=== PATIENT | male | born 1990 | race Two or more races ===

== ENCOUNTER 2019-07-02 13:30 | Emergency (ER) | payer MEDICAID, OTHER ==
[~2019-07-02] VITALS: Ht 177.8 cm; Wt 227.3 kg
[~2019-07-02 13:30] MED LIST: NOCURR
[2019-07-02] MEDS ORDERED: ACETAMINOPHEN 500 MG TABLET PO ONE (14:15)
[2019-07-02 15:17] VITALS: BP 142/74
== END 2019-07-02 15:59 | disposition home or self-care (01) ==
LOC: EMS 13:31
DX: U07.1 COVID-19 (principal); R07.89 Other chest pain; Z88.6 Allergy status to analgesic agent
CPT/HCPCS: 87635; 93005

== ENCOUNTER 2019-07-07 02:33 | Inpatient (IN) | payer MEDICAID ==
[~2019-07-07] VITALS: Ht 182.9 cm; Wt 204.0 kg
[2019-07-07] MEDS ORDERED: ACETAMINOPHEN 500 MG TABLET PO ONE (03:45)
[2019-07-07] MEDS ORDERED: LORazepam 1 MG TABLET PO ONE (03:45)
[2019-07-07 04:49] LABS: BASOPHILS % (AUTO) 0.3 % (0.0-2.0); EOSINOPHILS % (AUTO) 0.1 % (1.0-6.0); HEMATOCRIT 43.9 % (41-53); HEMOGLOBIN 14.7 g/dL (13.5-17.5); LYMPHOCYTES # (AUTO) 1.2 K/uL (1.0-4.8); LYMPHOCYTES % (AUTO) 13.8 % (22.0-44.0); MEAN CORPUSCULAR HEMOGLOBIN 29.9 pg (26.0-34.0); MEAN CORPUSCULAR HGB CONC 33.5 G/dL (31.0-37.0); MEAN CORPUSCULAR VOLUME 89 fL (80-100); MONOCYTES # (AUTO) 0.3 K/uL (0.1-1.0); MONOCYTES % (AUTO) 3.7 % (2.0-9.0); NEUTROPHILS # (AUTO) 7.5 K/uL (1.8-7.7); NEUTROPHILS % (AUTO) 82.1 % (40.0-70.0); PLATELET COUNT (AUTO) 158 K/uL (150-450); RED BLOOD CELL COUNT(AUTO) 4.92 MIL/uL (4.50-5.90); RED CELL DISTRIBUTION WIDTH 13.9 % (11.5-14.5)
[2019-07-07 05:23] LABS: ALANINE AMINOTRANSFERASE 69 U/L (12-78); ALKALINE PHOSPHATASE 106 U/L (46-116); ANION GAP 8 mmol/L (8-16); ASPARTATE AMINOTRANSFERASE 55 U/L (15-37); BILIRUBIN,TOTAL 0.6 mg/dL (0.1-1.0); CALCIUM, TOTAL 7.9 mg/dL (8.8-10.5); CARBON DIOXIDE 30 mmol/L (22-29); CHLORIDE 98 mmol/L (98-107); CREATININE 0.93 mg/dL (0.60-1.30); GLOMERULAR FILTR. RATE CALC > 60 mL/min (>60); GLUCOSE,RANDOM 111 mg/dL (70-110); POTASSIUM 3.1 mmol/L (3.5-5.1); SODIUM SERUM 136 mmol/L (136-145); TOTAL PROTEIN, SERUM 8.4 g/dL (6.4-8.2)
[2019-07-07 05:36] LABS: ALBUMIN 3.5 g/dL (3.4-5.0); UREA NITROGEN, BLOOD 4 mg/dL (7-18)
[2019-07-07] MEDS ORDERED: ONDANSETRON HCL 4 MG/2 ML VIAL IVP PRN ×2 (06:00→10:00)
[2019-07-07] MEDS ORDERED: 0.9% SODIUM CHLORIDE 10 ML SYRINGE IVP PRN (06:00)
[2019-07-07] MEDS ORDERED: POTASSIUM CHLORIDE 10% 40 MEQ/30 ML LIQUID UDCUP PO ONE (06:00)
[2019-07-07] MEDS ORDERED: AZITHROMYCIN 500 MG/NS 250 ML IV ONE (06:00)
[2019-07-07] MEDS ORDERED: HYDROXYCHLOROQUINE SULFATE 200 MG TABLET PO ONE ×3 (06:00→21:00)
[2019-07-07] MEDS ORDERED: ACETAMINOPHEN 325 MG TABLET PO PRN (06:00)
[2019-07-07] MEDS ORDERED: POTASSIUM CHL 20 MEQ/D5-0.45NS 1,000 ML IV ONE (06:00)
[2019-07-07] MEDS ORDERED: SODIUM CHLORIDE 0.9% 250 ML IV ONE (07:42)
[2019-07-07 08:15] VITALS: BP 153/88
[2019-07-07] MEDS ORDERED: ZOLPIDEM TARTRATE 5 MG TABLET PO PRN (10:00)
[2019-07-07] MEDS ORDERED: HYDROCODONE/ACETAMINOPHEN 5-325 MG TABLET PO PRN (10:00)
[2019-07-07] MEDS ORDERED: BISACODYL 10 MG RECTAL RECTAL SUPPOSITORY PR PRN (10:00)
[2019-07-07] MEDS ORDERED: MAGNESIUM HYDROXIDE SUSPENSION 30 ML UDCUP PO PRN (10:00)
[2019-07-07] MEDS ORDERED: MORPHINE SULFATE 2 MG/ML SYRINGE IVP PRN (10:00)
[2019-07-07 11:04] LABS: D-DIMER 0.36 mg/L FEU (0.00-0.50)
[2019-07-07 11:10] LABS: C-REACTIVE PROTEIN QUANT 8.42 mg/dL (0.00-0.30)
[2019-07-07 12:01] VITALS: BP 149/84
[2019-07-07] MEDS: ACETAMINOPHEN 325 MG TABLET PO PRN ×2 (12:19→20:14)
[2019-07-07] MEDS: ASCORBIC ACID 500 MG TABLET PO SCH ×2 (15:18→20:13)
[2019-07-07] MEDS: HEPARIN SODIUM,PORCINE 5,000 UNITS/ML VIAL SQ SCH (15:18)
[2019-07-07 15:19] VITALS: BP 155/96
[2019-07-07] MEDS: LORazepam 2 MG/ML VIAL IVP PRN (19:53)
[2019-07-07 20:00] VITALS: BP 140/75
[2019-07-07 20:03] LABS: ABG A-A DIFF O2 35.6 mmHg (10-20.0); ABG BASE EXCESS 2.7 mmol/L (-2.0-3.0); ABG CARBOXYHEMOGLOBIN 0.9 % (0.0-3.0); ABG HCO3 26.9 mmol/L (22.0-26.0); ABG METHEMOGLOBIN 0.1 % (0.0-1.5); ABG OXYGEN CONTENT 18.6 mL/dL (15.0-23.0); ABG OXYHEMOGLOBIN 92.1 % (94.0-100.0); ABG PCO2 40 mmHg (35-45); ABG PH 7.448 (7.350-7.450); ABG TOTAL HEMOGLOBIN 14.4 G/dL (12.0-18.0); PO2, ARTERIAL BG 66.1 mmHg (80.0-100.0); SITE, BLOOD GAS RT RADIAL; SOURCE, BLOOD GAS ARTERIAL
[2019-07-07] MEDS: ZINC GLUCONATE 50 MG TABLET PO SCH (20:11)
[2019-07-07] MEDS: DOCUSATE SODIUM 100 MG CAPSULE PO SCH (20:12)
[2019-07-07] MEDS: THIAMINE HCL 100 MG/ML 2ML VIAL IVP SCH (20:13)
[2019-07-08] VITALS: BP 148/77
[2019-07-08] MEDS: ACETAMINOPHEN 325 MG TABLET PO PRN (01:01)
[2019-07-08] MEDS: LORazepam 2 MG/ML VIAL IVP PRN ×2 (03:58→23:07)
[2019-07-08 04:00] VITALS: BP 143/67
[2019-07-08 07:10] LABS: BASOPHILS % (AUTO) 0.1 % (0.0-2.0); EOSINOPHILS % (AUTO) 0 % (1.0-6.0); HEMATOCRIT 39.2 % (41-53); HEMOGLOBIN 13.4 g/dL (13.5-17.5); LYMPHOCYTES # (AUTO) 1.5 K/uL (1.0-4.8); LYMPHOCYTES % (AUTO) 20.5 % (22.0-44.0); MEAN CORPUSCULAR HEMOGLOBIN 30.2 pg (26.0-34.0); MEAN CORPUSCULAR HGB CONC 34.1 G/dL (31.0-37.0); MEAN CORPUSCULAR VOLUME 88 fL (80-100); MONOCYTES # (AUTO) 0.4 K/uL (0.1-1.0); MONOCYTES % (AUTO) 5.4 % (2.0-9.0); NEUTROPHILS # (AUTO) 5.5 K/uL (1.8-7.7); PLATELET COUNT (AUTO) 168 K/uL (150-450); RED BLOOD CELL COUNT(AUTO) 4.43 MIL/uL (4.50-5.90); RED CELL DISTRIBUTION WIDTH 14.1 % (11.5-14.5)
[2019-07-08 07:57] LABS: INR 1.2 (0.9-1.1); PROTHROMBIN TIME 12.5 SEC (9.4-11.6)
[2019-07-08 08:30] VITALS: BP 147/84
[2019-07-08] MEDS: THIAMINE HCL 100 MG/ML 2ML VIAL IVP SCH ×2 (08:34→20:38)
[2019-07-08] MEDS: HEPARIN SODIUM,PORCINE 5,000 UNITS/ML VIAL SQ SCH ×4 (08:34→23:08)
[2019-07-08] MEDS: ZINC GLUCONATE 50 MG TABLET PO SCH ×2 (08:34→20:38)
[2019-07-08] MEDS: HYDROXYCHLOROQUINE SULFATE 200 MG TABLET PO SCH ×2 (08:34→20:38)
[2019-07-08] MEDS: AZITHROMYCIN 500 MG TABLET PO SCH (08:35)
[2019-07-08] MEDS: ASCORBIC ACID 500 MG TABLET PO SCH ×3 (08:35→20:38)
[2019-07-08] MEDS: PANTOPRAZOLE SODIUM 40 MG DR TABLET PO SCH (08:35)
[2019-07-08 08:47] LABS: ANION GAP 12 mmol/L (8-16); CALCIUM, TOTAL 7.6 mg/dL (8.8-10.5); CARBON DIOXIDE 25 mmol/L (22-29); CHLORIDE 100 mmol/L (98-107); CREATINE KINASE, TOTAL ONLY 85 U/L (39-308); CREATININE 0.73 mg/dL (0.60-1.30); GLOMERULAR FILTR. RATE CALC > 60 mL/min (>60); GLUCOSE,RANDOM 105 mg/dL (70-110); SODIUM SERUM 137 mmol/L (136-145); UREA NITROGEN, BLOOD 4 mg/dL (7-18)
[2019-07-08 08:50] LABS: POTASSIUM 2.9 mmol/L (3.5-5.1)
[2019-07-08] MEDS: DOCUSATE SODIUM 100 MG CAPSULE PO SCH ×2 (09:00→20:38)
[2019-07-08] MEDS ORDERED: HYDROXYCHLOROQUINE SULFATE 200 MG TABLET PO ONE (09:00)
[2019-07-08] MEDS ORDERED: POTASSIUM CHLORIDE 20 MEQ ER TABLET PO ONE (09:30)
[2019-07-08 11:24] VITALS: BP 136/72
[2019-07-08] MEDS ORDERED: ONDANSETRON HCL 4 MG/2 ML VIAL IVP PRN (12:15)
[2019-07-08 16:00] VITALS: BP 138/76
[2019-07-08] MEDS ORDERED: POTASSIUM CHL 10 MEQ/WATER 50 ML IV PRN (19:30)
[2019-07-08 20:00] VITALS: BP 135/75
[2019-07-09] VITALS: BP 149/75
[2019-07-09 04:00] VITALS: BP 143/74
[2019-07-09] MEDS: ACETAMINOPHEN 325 MG TABLET PO PRN ×2 (06:37→20:48)
[2019-07-09 06:46] LABS: BASOPHILS % (AUTO) 0.2 % (0.0-2.0); EOSINOPHILS % (AUTO) 0.4 % (1.0-6.0); HEMATOCRIT 39.6 % (41-53); HEMOGLOBIN 13.4 g/dL (13.5-17.5); LYMPHOCYTES # (AUTO) 1.7 K/uL (1.0-4.8); LYMPHOCYTES % (AUTO) 22.9 % (22.0-44.0); MEAN CORPUSCULAR HGB CONC 33.7 G/dL (31.0-37.0); MEAN CORPUSCULAR VOLUME 89 fL (80-100); MONOCYTES # (AUTO) 0.5 K/uL (0.1-1.0); MONOCYTES % (AUTO) 7.2 % (2.0-9.0); NEUTROPHILS # (AUTO) 5.3 K/uL (1.8-7.7); NEUTROPHILS % (AUTO) 69.3 % (40.0-70.0); PLATELET COUNT (AUTO) 195 K/uL (150-450); RED BLOOD CELL COUNT(AUTO) 4.46 MIL/uL (4.50-5.90)
[2019-07-09 06:48] LABS: ANION GAP 14 mmol/L (8-16); CALCIUM, TOTAL 7.8 mg/dL (8.8-10.5); CARBON DIOXIDE 24 mmol/L (22-29); CHLORIDE 100 mmol/L (98-107); CREATININE 0.73 mg/dL (0.60-1.30); GLOMERULAR FILTR. RATE CALC > 60 mL/min (>60); GLUCOSE,RANDOM 88 mg/dL (70-110); POTASSIUM 3.2 mmol/L (3.5-5.1); SODIUM SERUM 138 mmol/L (136-145); UREA NITROGEN, BLOOD 6 mg/dL (7-18)
[2019-07-09] MEDS: POTASSIUM CHLORIDE 20 MEQ ER TABLET PO PRN ×2 (07:21→19:41)
[2019-07-09 08:00] VITALS: BP 148/85
[2019-07-09] MEDS: DOCUSATE SODIUM 100 MG CAPSULE PO SCH ×2 (08:16→20:49)
[2019-07-09] MEDS: AZITHROMYCIN 500 MG TABLET PO SCH (08:40)
[2019-07-09] MEDS: ASCORBIC ACID 500 MG TABLET PO SCH ×3 (08:40→20:49)
[2019-07-09] MEDS: PANTOPRAZOLE SODIUM 40 MG DR TABLET PO SCH (08:41)
[2019-07-09] MEDS: THIAMINE HCL 100 MG/ML 2ML VIAL IVP SCH ×2 (08:41→20:49)
[2019-07-09] MEDS: ZINC GLUCONATE 50 MG TABLET PO SCH ×2 (08:41→20:49)
[2019-07-09] MEDS: HYDROXYCHLOROQUINE SULFATE 200 MG TABLET PO SCH ×2 (08:41→20:49)
[2019-07-09] MEDS: HEPARIN SODIUM,PORCINE 5,000 UNITS/ML VIAL SQ SCH ×3 (08:41→23:37)
[2019-07-09] MEDS: LORazepam 2 MG/ML VIAL IVP PRN (11:06)
[2019-07-09 12:00] VITALS: BP 142/81
[2019-07-09 16:00] VITALS: BP 147/86
[2019-07-09 20:00] VITALS: BP 145/88
[2019-07-10] VITALS: BP 143/80
[2019-07-10] MEDS: LORazepam 2 MG/ML VIAL IVP PRN (01:48)
[2019-07-10 04:00] VITALS: BP 135/80
[2019-07-10 07:17] LABS: BASOPHILS % (AUTO) 0.2 % (0.0-2.0); EOSINOPHILS % (AUTO) 1.1 % (1.0-6.0); HEMATOCRIT 38.1 % (41-53); HEMOGLOBIN 12.8 g/dL (13.5-17.5); LYMPHOCYTES # (AUTO) 1.6 K/uL (1.0-4.8); LYMPHOCYTES % (AUTO) 19.8 % (22.0-44.0); MEAN CORPUSCULAR HEMOGLOBIN 29.8 pg (26.0-34.0); MEAN CORPUSCULAR HGB CONC 33.7 G/dL (31.0-37.0); MEAN CORPUSCULAR VOLUME 89 fL (80-100); MONOCYTES # (AUTO) 0.5 K/uL (0.1-1.0); MONOCYTES % (AUTO) 6.5 % (2.0-9.0); NEUTROPHILS # (AUTO) 5.8 K/uL (1.8-7.7); NEUTROPHILS % (AUTO) 72.4 % (40.0-70.0); PLATELET COUNT (AUTO) 231 K/uL (150-450); RED CELL DISTRIBUTION WIDTH 13.9 % (11.5-14.5)
[2019-07-10 07:52] LABS: ANION GAP 10 mmol/L (8-16); C-REACTIVE PROTEIN QUANT 4.69 mg/dL (0.00-0.30); CALCIUM, TOTAL 7.7 mg/dL (8.8-10.5); CARBON DIOXIDE 27 mmol/L (22-29); CHLORIDE 102 mmol/L (98-107); CREATININE 0.82 mg/dL (0.60-1.30); FERRITIN 673 ng/mL (26-388); GLOMERULAR FILTR. RATE CALC > 60 mL/min (>60); GLUCOSE,RANDOM 97 mg/dL (70-110); LACTATE DEHYDROGENASE 365 U/L (85-227); POTASSIUM 3.4 mmol/L (3.5-5.1); SODIUM SERUM 139 mmol/L (136-145); UREA NITROGEN, BLOOD 8 mg/dL (7-18)
[2019-07-10 08:00] VITALS: BP 148/78
[2019-07-10] MEDS: HEPARIN SODIUM,PORCINE 5,000 UNITS/ML VIAL SQ SCH ×2 (08:00→17:13)
[2019-07-10] MEDS: ASCORBIC ACID 500 MG TABLET PO SCH ×3 (10:36→20:32)
[2019-07-10] MEDS: DOCUSATE SODIUM 100 MG CAPSULE PO SCH ×2 (10:36→20:31)
[2019-07-10] MEDS: THIAMINE HCL 100 MG/ML 2ML VIAL IVP SCH ×2 (10:36→20:31)
[2019-07-10] MEDS: AZITHROMYCIN 500 MG TABLET PO SCH (10:36)
[2019-07-10] MEDS: PANTOPRAZOLE SODIUM 40 MG DR TABLET PO SCH (10:36)
[2019-07-10] MEDS: HYDROXYCHLOROQUINE SULFATE 200 MG TABLET PO SCH ×2 (10:36→20:36)
[2019-07-10] MEDS: ZINC GLUCONATE 50 MG TABLET PO SCH ×2 (10:36→20:31)
[2019-07-10] MEDS: POTASSIUM CHLORIDE 20 MEQ ER TABLET PO PRN (10:37)
[2019-07-10 12:00] VITALS: BP 140/71
[2019-07-10 16:00] VITALS: BP 140/73
[2019-07-10] MEDS ORDERED: INFLUENZA VIRUS VACCINE QVS 2019-20 (3YR+)/PF 60 MCG/0.5 ML SYRINGE IM ONE (18:45)
[2019-07-10 20:00] VITALS: BP 146/77
[2019-07-11] VITALS: BP 145/91
[2019-07-11] MEDS: HEPARIN SODIUM,PORCINE 5,000 UNITS/ML VIAL SQ SCH ×3 (00:08→17:10)
[2019-07-11 06:03] VITALS: BP 155/85
[2019-07-11 06:42] LABS: C-REACTIVE PROTEIN QUANT 3.45 mg/dL (0.00-0.30)
[2019-07-11] MEDS: HYDROXYCHLOROQUINE SULFATE 200 MG TABLET PO SCH ×2 (09:00→21:15)
[2019-07-11] MEDS: ZINC GLUCONATE 50 MG TABLET PO SCH ×2 (09:00→21:15)
[2019-07-11] MEDS: THIAMINE HCL 100 MG/ML 2ML VIAL IVP SCH ×2 (09:00→21:15)
[2019-07-11] MEDS: DOCUSATE SODIUM 100 MG CAPSULE PO SCH ×2 (09:00→21:00)
[2019-07-11] MEDS: PANTOPRAZOLE SODIUM 40 MG DR TABLET PO SCH (09:00)
[2019-07-11] MEDS: ASCORBIC ACID 500 MG TABLET PO SCH ×3 (09:00→21:15)
[2019-07-11] MEDS: AZITHROMYCIN 500 MG TABLET PO SCH (09:00)
[2019-07-11 12:00] VITALS: BP 148/81
[2019-07-11 16:00] VITALS: BP 152/82
[2019-07-11 21:00] VITALS: BP 133/73
[2019-07-12] VITALS: BP 129/71
[2019-07-12] MEDS: HEPARIN SODIUM,PORCINE 5,000 UNITS/ML VIAL SQ SCH ×2 (00:25→08:34)
[2019-07-12 06:30] VITALS: BP 144/85
[2019-07-12 07:12] LABS: BASOPHILS % (AUTO) 0.1 % (0.0-2.0); EOSINOPHILS % (AUTO) 1.7 % (1.0-6.0); HEMATOCRIT 36.2 % (41-53); HEMOGLOBIN 12.5 g/dL (13.5-17.5); LYMPHOCYTES # (AUTO) 1.9 K/uL (1.0-4.8); LYMPHOCYTES % (AUTO) 23.5 % (22.0-44.0); MEAN CORPUSCULAR HEMOGLOBIN 30.6 pg (26.0-34.0); MEAN CORPUSCULAR HGB CONC 34.4 G/dL (31.0-37.0); MEAN CORPUSCULAR VOLUME 89 fL (80-100); MONOCYTES # (AUTO) 0.6 K/uL (0.1-1.0); MONOCYTES % (AUTO) 7.6 % (2.0-9.0); NEUTROPHILS # (AUTO) 5.4 K/uL (1.8-7.7); NEUTROPHILS % (AUTO) 67.1 % (40.0-70.0); PLATELET COUNT (AUTO) 277 K/uL (150-450); RED BLOOD CELL COUNT(AUTO) 4.08 MIL/uL (4.50-5.90); RED CELL DISTRIBUTION WIDTH 13.8 % (11.5-14.5)
[2019-07-12 07:46] LABS: ALANINE AMINOTRANSFERASE 57 U/L (12-78); ALBUMIN 3.2 g/dL (3.4-5.0); ALKALINE PHOSPHATASE 77 U/L (46-116); ANION GAP 9 mmol/L (8-16); ASPARTATE AMINOTRANSFERASE 41 U/L (15-37); BILIRUBIN,TOTAL 0.6 mg/dL (0.1-1.0); CALCIUM, TOTAL 7.8 mg/dL (8.8-10.5); CARBON DIOXIDE 28 mmol/L (22-29); CHLORIDE 101 mmol/L (98-107); CREATININE 0.81 mg/dL (0.60-1.30); FERRITIN 712 ng/mL (26-388); GLOMERULAR FILTR. RATE CALC > 60 mL/min (>60); GLUCOSE,RANDOM 91 mg/dL (70-110); LACTATE DEHYDROGENASE 361 U/L (85-227); POTASSIUM 3.3 mmol/L (3.5-5.1); SODIUM SERUM 138 mmol/L (136-145); TOTAL PROTEIN, SERUM 7.7 g/dL (6.4-8.2); UREA NITROGEN, BLOOD 6 mg/dL (7-18)
[2019-07-12 08:00] VITALS: BP 147/77
[2019-07-12] MEDS: POTASSIUM CHLORIDE 20 MEQ ER TABLET PO PRN (08:34)
[2019-07-12] MEDS: ZINC GLUCONATE 50 MG TABLET PO SCH (08:35)
[2019-07-12] MEDS: ASCORBIC ACID 500 MG TABLET PO SCH (08:35)
[2019-07-12] MEDS: PANTOPRAZOLE SODIUM 40 MG DR TABLET PO SCH (08:35)
[2019-07-12] MEDS: DOCUSATE SODIUM 100 MG CAPSULE PO SCH (08:35)
[2019-07-12] MEDS: THIAMINE HCL 100 MG/ML 2ML VIAL IVP SCH (08:35)
[2019-07-12] MEDS ORDERED: ALPR0.5T8 PO (11:16)
[2019-07-12 12:00] VITALS: BP 136/79
== END 2019-07-12 16:45 | disposition home or self-care (01) | DRG 720 ==
LOC: EMS 02:33 → 5N 05:30
PROVIDERS: ADMIT Internal Medicine; ATTEND Internal Medicine
DX: A41.89 Other specified sepsis (principal); U07.1 COVID-19; J12.89 Other viral pneumonia; E66.01 Morbid (severe) obesity due to excess calories; Z68.44 Body mass index [BMI] 60.0-69.9, adult; E87.6 Hypokalemia; Z88.8 Allergy status to other drugs, medicaments and biological substances
CPT/HCPCS: 82728; 82805; 83520; 83615; 83735; 84132; 84145; 85379; 85384; 86140; 93005; 99291; J0456; J1644; J2060; J3411; J3480; J7050

== ENCOUNTER 2023-07-05 20:17 | Emergency (ER) | payer OTHER ==
[~2023-07-05] VITALS: Ht 175.3 cm; Wt 272.7 kg
[~2023-07-05 20:17] MED LIST changes: +BACTDSB PO; -NOCURR
[2023-07-05 21:50] LABS: BASOPHILS % (AUTO) 0.3 % (0.0-2.0); HEMOGLOBIN 13.6 g/dL (13.5-17.5); LYMPHOCYTES # (AUTO) 1.6 K/uL (1.0-4.8); MEAN CORPUSCULAR HEMOGLOBIN 30.1 pg (26.0-34.0); MEAN CORPUSCULAR HGB CONC 33.1 G/dL (31.0-37.0); MEAN CORPUSCULAR VOLUME 91 fL (80-100); MONOCYTES # (AUTO) 0.5 K/uL (0.1-1.0); MONOCYTES % (AUTO) 5.8 % (2.0-9.0); NEUTROPHILS # (AUTO) 6.6 K/uL (1.8-7.7); NEUTROPHILS % (AUTO) 73.9 % (40.0-70.0); PLATELET COUNT (AUTO) 280 K/uL (150-450); RED BLOOD CELL COUNT(AUTO) 4.51 MIL/uL (4.50-5.90); RED CELL DISTRIBUTION WIDTH 13.9 % (11.5-14.5); WHITE BLOOD COUNT (AUTO) 8.9 K/uL (4.5-11.0)
[2023-07-05 22:00] LABS: ANION GAP 12 mmol/L (8-16); CALCIUM, TOTAL 8.5 mg/dL (8.8-10.5); CARBON DIOXIDE 26 mmol/L (22-29); CHLORIDE 103 mmol/L (98-107); CREATININE 0.77 mg/dL (0.60-1.30); GLOMERULAR FILTR. RATE CALC > 60 mL/min (>60); GLUCOSE,RANDOM 116 mg/dL (70-110); POTASSIUM 3.7 mmol/L (3.5-5.1); SODIUM SERUM 141 mmol/L (136-145); UREA NITROGEN, BLOOD 9 mg/dL (7-18)
[2023-07-05 22:06] LABS: ALANINE AMINOTRANSFERASE 58 U/L (12-78); ALBUMIN 3.3 g/dL (3.4-5.0); ALKALINE PHOSPHATASE 105 U/L (46-116); ASPARTATE AMINOTRANSFERASE 36 U/L (15-37); BILIRUBIN,TOTAL 0.5 mg/dL (0.1-1.0); LIPASE 12 U/L (16-77); TOTAL PROTEIN, SERUM 8.5 g/dL (6.4-8.2)
[2023-07-05 23:00] VITALS: BP 135/67; PULSE 89; RESP 18; TEMP 98.3
== END 2023-07-06 00:30 | disposition home or self-care (01) ==
LOC: EMS 20:20
DX: K59.00 Constipation, unspecified (principal); J45.909 Unspecified asthma, uncomplicated; Z98.890 Other specified postprocedural states; Z88.6 Allergy status to analgesic agent
CPT/HCPCS: 80053; 83690; 85025; 99283

== ENCOUNTER 2023-10-06 18:32 | Emergency (ER) | payer OTHER ==
[~2023-10-06] VITALS: Ht 177.8 cm; Wt 272.7 kg
[2023-10-06 18:39] VITALS: BP 147/74; PULSE 100; RESP 20; TEMP 98.6
[2023-10-06 19:13] LABS: BASOPHILS % (AUTO) 0.3 % (0.0-2.0); EOSINOPHILS % (AUTO) 1.3 % (1.0-6.0); HEMATOCRIT 39.9 % (41-53); HEMOGLOBIN 13.3 g/dL (13.5-17.5); LYMPHOCYTES # (AUTO) 2.7 K/uL (1.0-4.8); LYMPHOCYTES % (AUTO) 26.2 % (22.0-44.0); MEAN CORPUSCULAR HEMOGLOBIN 30.4 pg (26.0-34.0); MEAN CORPUSCULAR HGB CONC 33.3 G/dL (31.0-37.0); MEAN CORPUSCULAR VOLUME 91 fL (80-100); MONOCYTES # (AUTO) 0.6 K/uL (0.1-1.0); MONOCYTES % (AUTO) 5.8 % (2.0-9.0); NEUTROPHILS # (AUTO) 6.9 K/uL (1.8-7.7); NEUTROPHILS % (AUTO) 66.4 % (40.0-70.0); PLATELET COUNT (AUTO) 269 K/uL (150-450); RED BLOOD CELL COUNT(AUTO) 4.37 MIL/uL (4.50-5.90); RED CELL DISTRIBUTION WIDTH 14.3 % (11.5-14.5); WHITE BLOOD COUNT (AUTO) 10.3 K/uL (4.5-11.0)
[2023-10-06 19:21] LABS: ANION GAP 16 mmol/L (8-16); CALCIUM, TOTAL 9.1 mg/dL (8.8-10.5); CARBON DIOXIDE 22 mmol/L (22-29); CHLORIDE 99 mmol/L (98-107); CREATININE 1.11 mg/dL (0.60-1.30); GLOMERULAR FILTR. RATE CALC > 60 mL/min (>60); GLUCOSE,RANDOM 132 mg/dL (70-110); POTASSIUM 3.5 mmol/L (3.5-5.1); SODIUM SERUM 137 mmol/L (136-145); UREA NITROGEN, BLOOD 13 mg/dL (7-18)
[2023-10-06 19:50] LABS: TROPONIN I-HIGH SENSITIVITY Less Than 4 ng/L (<76)
== END 2023-10-06 20:50 | disposition home or self-care (01) ==
LOC: EMS 18:32
DX: R07.89 Other chest pain (principal); R06.02 Shortness of breath; J45.909 Unspecified asthma, uncomplicated; Z88.6 Allergy status to analgesic agent
CPT/HCPCS: 71045; 80048; 84484; 85025; 93005; 99285; 36415-L1; 36415-TC